=== PATIENT | male | born 1995 | race Caucasian/White ===

== ENCOUNTER 2018-08-13 08:35 | Emergency (ER) | payer BC ==
[2018-08-13] MEDS ORDERED: Diph,Pert(Acell),Tet Vac 0.5 ML SYR IM ONE (09:18)
--- NOTE | 2018-08-13 09:24 | Emergency Department Record ---
History of Present Illness - General Chief Complaint: Ankle/Foot Injury Stated Complaint: SLIVER IN FOOT Time Seen by Provider: 08/13/18 09:09 Mode of Arrival: Ambulatory - History of Present Illness Initial Comments: patient jammed his foot on a piece of wood tack strip on the carpeting this am, 3 hours ago. Patient was at [facility] and they tried to take the wood out with a 1/4 inch incision and the wood was breaking up and he got an xray and didn't see anything and stopped and sent him to [facility]. Primary is Dr Aurora Staley in [place], [place]. Patient didn' bring the urgent care xrays with him. Onset/Timin -: Hour(s) Type of Injury: Other Place: Home Severity: Moderate Severity scale (1-10): 7 Improves With: Nothing Worsens With: Weight bearing Context: Walking Associated Symptoms: Able to partially bear weight Treatments Prior to Arrival: Bandage, Other - Related Data Home Medications Medication Instructions Recorded Confirmed Last Taken Dextroamphetamine/Amphetamine 20 mg PO TID 08/13/18 08/13/18 08/12/18 [Adderall 20 mg Tablet] Previous Rx's Medication Instructions Recorded Ibuprofen [Motrin 600Mg] 600 mg PO Q6H #30 tablet 08/13/18 Allergies Allergy/AdvReac Type Severity Reaction Status Date / Time No Known Drug Allergies Allergy Verified 08/13/18 08:42 Travel Screening - Travel/Exposure Within Last 30 Days Have you traveled within the last 30 days?: No - Travel/Exposure Within Last Year Have you traveled outside the [place] in the last year?: No - Additonal Travel Details Have you been exposed to anyone with a communicable illness?: No - Travel Symptoms Symptom Screening: None Review of Systems Reviewed: No additional complaints except as noted below Constitutional: Reports: As per HPI. Denies: Chills, Fever, Malaise, Night sweats, Weakness, Weight change Eyes: Reports: As per HPI. Denies: Eye discharge, Eye pain, Photophobia, Vision change ENT: Reports: As per HPI. Denies: Congestion, Dental pain, Ear pain, Epistaxis , Hearing loss, Throat pain Respiratory: Reports: As per HPI. Denies: Cough, Dyspnea, Hemoptysis, Stridor, Wheezes Cardiovascular: Reports: As per HPI. Denies: Arrhythmia, Chest pain, Dyspnea on exertion, Edema, Murmurs, Orthopnea, Palpitations, Paroxysmal nocturnal dyspnea, Rheumatic Fever, Syncope Endocrine: Reports: As per HPI. Denies: Fatigue, Heat or cold intolerance, Polydipsia, Polyuria Gastrointestinal: Reports: As per HPI. Denies: Abdominal pain, Constipation, Diarrhea, Hematemesis, Hematochezia, Melena, Nausea, Vomiting Genitourinary: Reports: As per HPI. Denies: Dysuria, Frequency, Hematuria, Incontinence, Retention, Testicular pain, Testicular mass, Urgency Musculoskeletal: Reports: As per HPI. Denies: Arthralgia, Back pain, Gout, Joint swelling, Myalgia, Neck pain Skin: Reports: As per HPI. Denies: Bruising, Change in color, Change in hair/ nails, Lesions, Pruritus, Rash Neurological: Reports: As per HPI. Denies: Abnormal gait, Confusion, Headache, Numbness, Paresthesias, Seizure, Tingling, Tremors, Vertigo, Weakness Psychiatric: Reports: As per HPI. Denies: Anxiety, Auditory hallucinations, Depression, Homicidal thoughts, Suicidal thoughts, Visual hallucinations Hematological/Lymphatic: Reports: As per HPI. Denies: Anemia, Blood Clots, Easy bleeding, Easy bruising, Swollen glands Past Medical History - SOCIAL HISTORY Smoking Status: Current every day smoker Alcohol Use: Occasional Drug Use: Rare Drug Use Detail:: Marijuana - RESPIRATORY Hx Respiratory Disorders: No - CARDIOVASCULAR Hx Cardio Disorders: No - NEURO Hx Neuro Disorders: No - GI Hx GI Disorders: No - Hx Genitourinary Disorders: No - ENDOCRINE Hx Endocrine Disorders: No - MUSCULOSKELETAL Hx Musculoskeletal Disorders: No - PSYCH Hx Psych Problems: No - HEMATOLOGY/ONCOLOGY Hx Hematology/Oncology Disorders: No Family Medical History Any Significant Family History?: Yes Hx Cancer: Mother, Grandparents Hx Diabetes: Father, Grandparents Physical Exam - General General Appearance: Alert, Oriented x3, Cooperative, No acute distress - Head Head exam: Normal inspection - Eye Eye exam: Normal appearance, PERRL Pupils: Normal accommodation - ENT ENT exam: Normal exam, Mucous membranes moist, Normal external ear exam, Normal orophraynx, TM's normal bilaterally Ear exam: Normal external inspection. negative: External canal tenderness Nasal Exam: Normal inspection. negative: Discharge, Sinus tenderness Mouth exam: Normal external inspection, Tongue normal Teeth exam: Normal inspection. negative: Dental caries Throat exam: Normal inspection. negative: Tonsillar erythema, Tonsillar exudate - Neck Neck exam: Normal inspection, Full ROM. negative: Tenderness - Respiratory Respiratory exam: Normal lung sounds bilaterally. negative: Respiratory distress - Cardiovascular Cardiovascular Exam: Regular rate, Normal rhythm, Normal heart sounds - GI/Abdominal GI/Abdominal exam: Soft, Normal bowel sounds. negative: Tenderness - Rectal Rectal exam: Deferred - exam: Deferred - Extremities Extremities exam: Normal inspection, Full ROM, Normal capillary refill. negative: Tenderness - Back Back exam: Reports: Normal inspection, Full ROM. Denies: Muscle spasm, Rash noted, Tenderness - Neurological Neurological exam: Alert, Normal gait, Oriented X3, Reflexes normal - Psychiatric Psychiatric exam: Normal affect, Normal mood - Skin Skin exam: Other (incision and no active bleeding under the first MP joint) Course Vital Signs 08/13/18 08:44 Temperature 98.2 F Pulse Rate 80 Respiratory 18 Rate Blood Pressure 118/64 Pulse Ox 98 - Reevaluation(s) Reevaluation #1: Discussed case with Dr. Bragg and will send him to the [facility] specialty clinic for eval 08/13/18 09:29 Medical Decision Making - Data Complexity MDM Data: X-Ray Ordered and/or Reviewed (No FB seen by my eyes ) Disposition Clinical Impression: Foreign body Disposition: Home, Self-Care Condition: (1) Good Instructions: Soft Tissue Foreign Body (ED) Additional Instructions: follow up with Dr Bragg today in the Clinic Prescriptions: Ibuprofen [Motrin 600Mg] 600 mg PO Q6H #30 tablet Forms: Patient Portal Access Time of Disposition: 09:56 Quality - Quality Measures Quality Measures: N/A - Blood Pressure Screening Does Patient Have Any of the Following: No Blood Pressure Classification: Normal BP Reading Systolic Measurement: 118 Diastolic Measurement: 64 Screening for High Blood Pressure: < Normal BP, F/U Not Required > [G8783]
[2018-08-13] MEDS ORDERED: NAPROXEN 250 MG TABLET PO ONE (09:30)
--- NOTE | 2018-08-14 12:47 | RADIOLOGY REPORT ---
EXAM: LEFT FOOT HISTORY: PAIN. TECHNIQUE: Three views of the left foot were performed. FINDINGS: No evidence of fracture or dislocation. No lytic or blastic lesion. IMPRESSION: NEGATIVE LEFT FOOT EXAMINATION. JOB NUMBER: [id number] [facility]
== END 2018-08-13 10:12 | disposition home or self-care (01) ==
LOC: ER 08:35
DX: S90.852A Superficial foreign body, left foot, initial encounter (principal); W23.1XXA Caught, crushed, jammed, or pinched between stationary objects, initial encounter; Y92.009 Unspecified place in unspecified non-institutional (private) residence as the place of occurrence of the external cause; F17.210 Nicotine dependence, cigarettes, uncomplicated
CPT/HCPCS: 90715; 96372; 99283

== ENCOUNTER 2018-08-14 10:32 | Day surgery (SDC) | payer BC ==
[2018-08-14] MEDS ORDERED: CLINDAMYCIN 600MG/50ML PREMIX 600 MG/50 ML BAG IVPB ONE (10:33)
[2018-08-14] MEDS ORDERED: PROPOFOL 10 MG/ML VIAL IV ONE (10:33)
[2018-08-14] MEDS ORDERED: MIDAZOLAM HCL 2MG/2ML VIAL IV ONE (10:33)
[2018-08-14] MEDS ORDERED: SEVOFLURANE 250 ML INH ONE (10:33)
[2018-08-14] MEDS ORDERED: FENTANYL PF 100MCG/2ML VIAL IV ONE (10:33)
[2018-08-14] MEDS ORDERED: LIDOCAINE 2% MDV (20MG/ML) 20ML VIAL IV ONE (10:33)
--- NOTE | 2018-08-15 08:50 | Operative Note ---
DATE OF SURGERY: 08/14/2018 Surgeon: Harsh Bragg DO PREOPERATIVE DIAGNOSIS: Foreign body of the left foot. POSTOPERATIVE DIAGNOSIS: Foreign body of the left foot. OPERATION: Removal of foreign body of the left foot (deep). Anesthesia: General. PROCEDURE: This 23-year-old male was taken to the operating room and placed in the supine position on the operating room table. A general anesthetic was administered and the left foot was prepped with Hibiclens and prepped and draped in the usual sterile fashion. It was exsanguinated and the tourniquet inflated to 200 mmHg around the proximal calf. The plantar aspect of the foot was addressed where a previous Urgent Care doctor had made a small incision over the metacarpal phalangeal joint on the plantar aspect of the foot, which is where the puncture site from the foreign body was located. The incision that he made was approximately 0.75 cm. We removed the debris from the surface of the wound and bluntly dissected this open and we were able to see the end of the foreign body. It was grasped and pulled out of the wound. The foreign body was very deep, being approximately 2 cm deep, the wound was then copiously irrigated because some purulent-type material came out of the wound. The wound was copiously irrigated and no further purulent material was identified. The wound was not closed, it was left open to drain. Sterile bandages were applied. He was taken to the recovery room in satisfactory condition. GROSS PATHOLOGY: The patient had a wooden foreign body 2 cm in length, which entered the foot on the plantar surface and was located approximately over the plantar surface of the metatarsal phalangeal joints of the big toe. The foreign body was a piece of wood, the diameter being approximately 2 to 3 mm. [facility]
== END 2018-08-14 14:00 | disposition home or self-care (01) ==
LOC: SUR 10:32
PROVIDERS: ATTEND Orthopaedic Surgery
DX: M79.5 Residual foreign body in soft tissue (principal); F98.8 Other specified behavioral and emotional disorders with onset usually occurring in childhood and adolescence; F42.9 Obsessive-compulsive disorder, unspecified; F17.210 Nicotine dependence, cigarettes, uncomplicated
CPT/HCPCS: 28192; 01470; J3010

== ENCOUNTER 2019-01-02 15:37 | Emergency (ER) | payer BC ==
[2019-01-02] MEDS ORDERED: KETOROLAC 30 MG/ML VIAL IVP ONE (15:49)
--- NOTE | 2019-01-02 21:21 | Emergency Department Record ---
History of Present Illness - General Chief Complaint: Chest Pain Stated Complaint: CHEST DISCOMFORT Time Seen by Provider: 01/02/19 15:48 Source: Patient, Family (girl friend) Mode of Arrival: Ambulatory Limitations: No limitations - History of Present Illness Initial Comments: Pt to the ED with complaint of pain to the upper left chest onset in last two hours. Constant and sharp. Worse with deep inspiration. No assoicated EMMA, nausea, mild sweating but pt states not unusual on warm day. No fever, trauma, cough, or injury. No hx similar. No HTN, DM, Family hx heart ds, No drug/cocaine use. Pt smoker that quit one month ago. Ate Hungarian for lunch but no GI upset or epigastric pains. No recent travel, hormone use, immobilization, no hx DVT/clot issues. Onset/Timin -: Minutes(s) Onset: After eating, During exertion Pain Location: Substernal Pain Radiation: None Severity: Moderate Severity scale (1-10): 7 Quality: Heaviness Consistency: Intermittent Improves With: Nothing Worsens With: Nothing Treatments Prior to Arrival: None - Related Data Home Medications Medication Instructions Recorded Confirmed Last Taken Bupropion HCl [Bupropion HCl Sr] 150 mg PO BID 01/02/19 01/02/19 01/02/19 Previous Rx's Medication Instructions Recorded Ibuprofen [Motrin] 800 mg PO Q8H PRN 7 Days #40 tab 01/02/19 Allergies Allergy/AdvReac Type Severity Reaction Status Date / Time No Known Drug Allergies Allergy Verified 01/02/19 15:41 Travel Screening - Travel/Exposure Within Last 30 Days Have you traveled within the last 30 days?: No - Travel/Exposure Within Last Year Have you traveled outside the [place] in the last year?: No - Additonal Travel Details Have you been exposed to anyone with a communicable illness?: No - Travel Symptoms Symptom Screening: None Review of Systems Constitutional: Denies: Chills, Fever, Weakness Eyes: Denies: Eye discharge, Photophobia ENT: Denies: Congestion, Dental pain, Ear pain Respiratory: Reports: As per HPI. Denies: Cough, Dyspnea, Hemoptysis, Wheezes Cardiovascular: Reports: As per HPI, Chest pain Endocrine: Denies: Fatigue Gastrointestinal: Denies: Abdominal pain, Diarrhea, Nausea, Vomiting Genitourinary: Denies: Dysuria, Hematuria Musculoskeletal: Denies: Back pain Skin: Denies: Bruising, Rash Neurological: Denies: Headache, Numbness, Weakness Psychiatric: Denies: Anxiety Hematological/Lymphatic: Denies: Anemia Past Medical History - SOCIAL HISTORY Smoking Status: Former smoker Alcohol Use: Occasional Drug Use: None - RESPIRATORY Hx Respiratory Disorders: No - CARDIOVASCULAR Hx Cardio Disorders: No - NEURO Hx Neuro Disorders: No - GI Hx GI Disorders: No - Hx Genitourinary Disorders: No - ENDOCRINE Hx Endocrine Disorders: No - MUSCULOSKELETAL Hx Musculoskeletal Disorders: Yes Comment:: splinter left foot - PSYCH Hx Psych Problems: Yes Hx Anxiety: Yes (OCD was on meds in the past off for 9 months doing well) Comment:: ADD - HEMATOLOGY/ONCOLOGY Hx Hematology/Oncology Disorders: No Family Medical History Any Significant Family History?: Yes Hx Cancer: Mother, Grandparents Hx Diabetes: Father, Grandparents Physical Exam - General General Appearance: Alert, Oriented x3, Cooperative, No acute distress - Head Head exam: Normal inspection - Eye Eye exam: Normal appearance, PERRL - ENT ENT exam: Normal exam, Mucous membranes moist, Normal external ear exam, Normal orophraynx, TM's normal bilaterally - Neck Neck exam: Normal inspection, Full ROM. negative: Tenderness - Respiratory Respiratory exam: Normal lung sounds bilaterally. negative: Accessory muscle use, Chest wall tenderness, Decreased breath sounds, Prolonged expiratory, Rales, Respiratory distress, Rhonchi, Wheezes - Cardiovascular Cardiovascular Exam: Regular rate, Normal rhythm, Normal heart sounds. negative: Bradycardia, Diastolic murmur, Systolic murmur, Tachycardia Peripheral Pulses: 2+: Radial (R), Radial (L) - GI/Abdominal GI/Abdominal exam: Soft, Normal bowel sounds. negative: Distended, Guarding, Hyperactive bowel sounds, Rebound, Tenderness - Extremities Extremities exam: Normal inspection, Full ROM, Normal capillary refill. negative: Calf tenderness, Pedal edema, Tenderness - Back Back exam: Reports: Normal inspection - Neurological Neurological exam: Alert, Normal gait, Oriented X3 - Psychiatric Psychiatric exam: Normal affect, Normal mood. negative: Anxious - Skin Skin exam: Normal color. negative: Rash Course Vital Signs 01/02/19 15:43 Temperature 97.9 F Pulse Rate 77 Respiratory 20 Rate Blood Pressure 121/78 Pulse Ox 98 - Reevaluation(s) Reevaluation #1: 01/02/19 16:59 Pt with normal EKG and CXR. Toradol with total resolution of upper left sharp chest pains. Low risk 23 year old with atypical pains. We discussed cardiac versus non cardiac type pain. Pt works on [employer] and just completed 4 days of 12 hours shifts. Does repetitive work over head. This is musculoskeletal in nature. Pt and girl friend understand and agree. We discussed that he should continue to NOT smoke, and to begin to focus on weight loss and exercise. Procedures - EKG Initial Date: 01/02/19 Time: 16:12 EKG: Normal EKG (NSR 77) Medical Decision Making - Data Complexity MDM Data: X-Ray Ordered and/or Reviewed, EKG Ordered and/or Reviewed Disposition Disposition: Discharge Clinical Impression: Chest wall pain Disposition: Home, Self-Care Condition: (1) Good Instructions: Chest Pain (ED) Additional Instructions: Take Motrin as instructed. Discussed family doctor follow up and reasons to return to the ED if needed. Prescriptions: Ibuprofen [Motrin] 800 mg PO Q8H PRN 7 Days #40 tab PRN Reason: Pain - Moderate (5-7) Forms: Patient Portal Access Time of Disposition: 16:58 Quality - Quality Measures Quality Measures: N/A - Blood Pressure Screening Does Patient Have Any of the Following: No Blood Pressure Classification: Pre-Hypertensive BP Reading Systolic Measurement: 121 Diastolic Measurement: 78 Screening for High Blood Pressure: < Pre-Hypertensive BP, F/U Documented > [G8950] Pre-Hypertensive Follow-up Interventions: Follow-up with rescreen every year.
--- NOTE | 2019-01-05 20:56 | RADIOLOGY REPORT ---
EXAM: CHEST 2 VIEWS HISTORY: CRUSHING CHEST PAIN IMMEDIATELY AFTER EATING TODAY. TECHNIQUE: Upright PA and lateral views of the chest. FINDINGS: The cardiomediastinal silhouette is normal in size and configuration. The pulmonary vasculature is nondilated. The lungs and pleural spaces are clear. No acute osseous abnormality identified. IMPRESSION: NO RADIOGRAPHIC EVIDENCE OF ACUTE CARDIOPULMONARY DISEASE. JOB NUMBER: [id number] [facility]
== END 2019-01-02 17:07 | disposition home or self-care (01) ==
LOC: ER 15:37
DX: R07.89 Other chest pain (principal); Z87.891 Personal history of nicotine dependence
CPT/HCPCS: 71046; 93005; 93010; 96374; 99284; J1885